=== PATIENT | female | born 1975 | race Caucasian/White ===

== ENCOUNTER 2019-03-18 06:33 | Emergency (ER) | payer BC ==
[~2019-03-18] VITALS: Ht 165.1 cm; Wt 63.5 kg
[~2019-03-18 06:33] MED LIST: CLARINEX-D 24 H1 T24 PO; MOTRIN600 MG PO; MOTRIN800 MG PO; ULTRAM50 MG PO
[2019-03-18] MEDS ORDERED: EPIPEN 2-P0.3 MG/0.3 IJ (07:11)
[2019-03-18] MEDS ORDERED: MEDROL DOSEPAK4 MG PO (07:11)
== END 2019-03-18 07:55 | disposition home or self-care (01) ==
LOC: ED 06:33
DX: T63.461A Toxic effect of venom of wasps, accidental (unintentional), initial encounter (principal); T78.2XXA Anaphylactic shock, unspecified, initial encounter; R42 Dizziness and giddiness; Z79.899 Other long term (current) drug therapy; X58.XXXA Exposure to other specified factors, initial encounter